=== PATIENT | female | born 1955 | race Caucasian/White ===

== ENCOUNTER 2019-11-27 11:31 | Inpatient (IN) | payer SELFPAY ==
[~2019-11-27] VITALS: Ht 170.2 cm; Wt 74.2 kg
[2019-11-27] MEDS ORDERED: SODIUM CHLORIDE 0.9% 1,000 ML IVB ONE (12:49)
[2019-11-27 13:21] LABS: Basophils # (auto) 0 10 ^3/uL (0-0.2); Basophils % (auto) 0.4 % (0.0-2.0); Eosinophils # (auto) 0 10 ^3/uL (0-0.8); Eosinophils % (auto) 0.2 % (0.0-7.0); Hematocrit 33.1 % (36.0-46.0); Hemoglobin 10.7 g/dL (12.2-16.2); Lymphocytes # (auto) 0.9 10 ^3/uL (0.4-5.4); Lymphocytes % (auto) 15.4 % (10.0-50.0); Mean Corpuscular Hgb Conc. 32.2 g/dL (32.0-36.0); Mean Corpuscular Volume 87.1 fL (80.0-100.0); Monocytes # (auto) 0.4 10 ^3/uL (0-1.3); Monocytes % (auto) 6.3 % (0.0-12.0); Neutrophils # (auto) 4.6 10 ^3/uL (1.6-8.6); Neutrophils % (auto) 77.7 % (37.0-80.0); Platelet Count (auto) 325 10^3/uL (140-450); Red Cell Distribution Width 14.6 % (11.8-14.3)
[2019-11-27 13:23] LABS: Urine Amorphous Crystal FEW /hpf (None Seen); Urine Bacteria MANY /hpf (None Seen); Urine Blood TRACE /uL (Negative); Urine Specific Gravity 1.008 (1.001-1.035); Urine WBC 7 /hpf (0 - 5)
[2019-11-27 13:36] LABS: INR 1.01 (0.9-1.15); Partial Thromboplastin Time 27.8 sec (23.64-32.05)
[2019-11-27 13:40] LABS: Alanine Aminotransferase 27 U/L (13-56); Albumin 3.1 g/dL (3.4-5.0); Anion Gap 9 (5-15); Blood Urea Nitrogen 12 mg/dL (7-18); Calcium 8.3 mg/dL (8.5-10.1); Carbon Dioxide 26 mmol/L (21-32); Chloride 102 mmol/L (98-107); Glucose 107 mg/dL (74-106); Magnesium 2.3 mg/dL (1.6-2.6); Potassium 3.8 mmol/L (3.5-5.1); Sodium 137 mmol/L (136-145)
[2019-11-27 13:45] LABS: Alkaline Phosphatase 117 U/L (45-117); Aspartate Aminotransferase 37 U/L (15-37); BUN/Creatinine Ratio 17.9; Bilirubin, Total 0.3 mg/dL (0.2-1.0); GFR African American 114 mL/min; GFR Non-African American 94 mL/min; Total Protein 7.8 g/dL (6.4-8.2)
[2019-11-27] MEDS: SODIUM CHLORIDE 0.9% 1,000 ML IV SCH (18:16)
[2019-11-27] MEDS ORDERED: ACETAMINOPHEN 500 MG TAB PO PRN (18:30)
[2019-11-27] MEDS ORDERED: ONDANSETRON HCL 4 MG/2 ML VIAL IV PRN (18:30)
[2019-11-27] MEDS ORDERED: DIPHENOXYLATE W/ATROPINE 2.5 MG TAB PO ONE (18:30)
[2019-11-27] MEDS ORDERED: DEXTROSE (50%) 50ML SYRG IV PRN (18:30)
[2019-11-27] MEDS ORDERED: HYDROcodone-ACET 5/325MG TAB PO PRN (18:30)
[2019-11-27] MEDS ORDERED: MORPHINE SULF INJ 2 MG/ML SYRINGE 1ML IV PRN ×2 (18:30)
[2019-11-27] MEDS ORDERED: NITROGLYCERIN 0.4 MG SL TAB SL PRN (18:30)
[2019-11-27] MEDS: cefTRIAXone 1GM/50ML D5W 50 ML IV SCH (19:01)
--- NOTE | 2019-11-27 21:20 | NUR ---
[facility] admit from ER [facility],HAL admitted to [facility] from ED. Patient oriented to Hayley Vasquez, primary RN, unit, room, bed, and unit policies regarding patient care and visiting hours. Patient weighed by bedscale and encouraged to call if they need something. All questions and concerns addressed, patient verbalized understanding.
[2019-11-27 22:00] VITALS: BP 130/64
[2019-11-27 22:06] VITALS: BP 130/64
[2019-11-27] MEDS ORDERED: INFLUENZA QUAD 2019-2020 0.5ml SYRG IM ONE (22:30)
[2019-11-27] MEDS ORDERED: PNEUMOCOCCAL VACC POLYS 25 MCG/0.5 ML VIAL IM ONE (22:30)
[2019-11-27] MEDS ORDERED: OMEP-335 PO (22:41)
[2019-11-27] MEDS ORDERED: GABA-339 PO (22:41)
[2019-11-27] MEDS ORDERED: LEVO112T35 PO (22:41)
[2019-11-27] MEDS ORDERED: INSLISPI SC (22:41)
[2019-11-27] MEDS ORDERED: FLUO60TA7 PO (22:41)
[2019-11-27] MEDS: GABAPENTIN 300 MG CAP PO SCH (22:48)
[2019-11-27] MEDS: ACCU-CHEK COMFORT CURVE STRIP VI SCH (22:49)
[2019-11-27] MEDS: InsuLIN REG 1unit/0.01ml Soln (100units/ml) SC SCH (22:49)
--- NOTE | 2019-11-28 02:47 | NUR ---
WOUND CARE WOUND NOTED TO PATIENTS RIGHT FOREARM UPON ARRIVAL. PATIENT STATED SHE GOT THE ABRASION WHEN SHE FELL AT HOME AND EMS DRESSED THE WOUND IN ROUTE TO THE HOSPITAL. DRESSING WAS REMOVED AND WOUND CLEANED. PATIENT REFUSED WOUND DRESSING AT THIS TIME AND REQUESTED TO LEAVE WOUND OPEN TO AIR. PHOTO TAKEN. PATIENT TOLERATED INTERVENTION WELL WITH NO S/S OF DISTRESS. WILL CONTINUE TO MONITOR.
--- NOTE | 2019-11-28 03:35 | NUR ---
LOW BS PATIENT REPORTED "FEELING FUNNY", PATIENT WAS SITTING UP IN BED, RESTING. BLOOD GLUCOSE WAS CHECKED, READING 22, RECHECKED PER PROTOCOL, READING 25. PATIENT WAS GIVEN JUICE BOX AND CRACKERS. BLOOD GLUCOSE WAS RECHECKED WITH A FINAL READING OF 84. PATIENT STATED SHE "FELT FINE NOW" AND WAS RESTING IN BED, ALERT AND ORIENTED. HOSPITALIST PAGED PER PROTOCOL. WILL CONTINUE TO MONITOR.
[2019-11-28] MEDS: SODIUM CHLORIDE 0.9% 1,000 ML IV SCH ×2 (04:14→14:05)
[2019-11-28 05:41] VITALS: BP 100/62
[2019-11-28] MEDS: GABAPENTIN 300 MG CAP PO SCH ×2 (06:26→14:03)
[2019-11-28 06:52] LABS: Calcium 7.4 mg/dL (8.5-10.1)
[2019-11-28] MEDS ORDERED: INSULIN LANTUS (GLARGINE) 1 /0.01ml (100units/ml) SC SCH (07:00)
[2019-11-28] MEDS: InsuLIN REG 1unit/0.01ml Soln (100units/ml) SC SCH ×4 (07:00→22:29)
[2019-11-28 07:06] LABS: Eosinophils # (auto) 0.1 10 ^3/uL (0-0.8); Hemoglobin 8.2 g/dL (12.2-16.2); Lymphocytes # (auto) 1.7 10 ^3/uL (0.4-5.4); Monocytes # (auto) 0.6 10 ^3/uL (0-1.3); Nucleated Red Blood Cells % 0.1 %; Platelet Count (auto) 230 10^3/uL (140-450)
[2019-11-28] MEDS: ACCU-CHEK COMFORT CURVE STRIP VI SCH ×4 (07:11→22:17)
[2019-11-28 07:13] LABS: Basophils # (auto) 0 10 ^3/uL (0-0.2); Basophils % (auto) 0.9 % (0.0-2.0); Eosinophils % (auto) 2.7 % (0.0-7.0); Hematocrit 25.2 % (36.0-46.0); Lymphocytes % (auto) 32.8 % (10.0-50.0); Mean Corpuscular Hemoglobin 28.4 pg (28.0-32.0); Mean Corpuscular Hgb Conc. 32.4 g/dL (32.0-36.0); Mean Corpuscular Volume 87.5 fL (80.0-100.0); Monocytes % (auto) 12.7 % (0.0-12.0); Neutrophils # (auto) 2.6 10 ^3/uL (1.6-8.6); Neutrophils % (auto) 50.9 % (37.0-80.0); Red Blood Cells 2.88 10^6/uL (4.0-5.20); Red Cell Distribution Width 14.7 % (11.8-14.3); White Blood Cell 5.1 10^3/uL (4.4-10.8)
--- NOTE | 2019-11-28 07:30 | NUR ---
Opening Shift Note Assumed care of patient, who is alert and oriented x4. No S/S of distress/SOB or pain. Bed is low, locked with 2x side rails up. Call light is within reach. Instructed on POC and to call for assist PRN, will continue to monitor for changes Q1hr and PRN.
[2019-11-28 08:00] VITALS: BP 102/56
[2019-11-28] MEDS: cefTRIAXone 1GM/50ML D5W 50 ML IV SCH (08:46)
[2019-11-28 09:00] VITALS: BP 102/56
[2019-11-28] MEDS: FLUoxetine HCL 20 MG CAP PO SCH (09:51)
[2019-11-28] MEDS ORDERED: FAMOTIDINE 20 MG TAB PO SCH (10:00)
[2019-11-28] MEDS ORDERED: LEVOTHYROXINE SODIUM 100 MCG/5 ML INJ IV ONE (10:30)
[2019-11-28 13:00] VITALS: BP 116/65
--- NOTE | 2019-11-28 13:11 | NUR ---
social Service consult regarding Advance Directives. Provided pt with information on Advance Directives and Durable Power of employment law attorney. Pt verbalized understanding and accepted information.Will contact Operating Room Tech for any further concerns or issues.
[2019-11-28] MEDS ORDERED: SODIUM CHLORIDE 0.9% 1,000 ML IV SCH (15:00)
--- NOTE | 2019-11-28 15:00 | NUR ---
WOUND CARE NOTE: Wound care into see patient per wound care request regarding skin integrity issue that are noted present on admission. Bedside nurse took photograph of patient's skin issue upon admission for reference. Patient is 64 years old female with admitting diagnosis of Acute Cystitis. Patient is resting in bed in Rm. 221B. Patient is awake, alert and oriented. Patient is in no stated pain at this time. Per RN's report,patient is ambulatory to bathroom with assist. She's self turn and reposition. Her Shawn score is 20. Skin assessment done with the assistance of patient's nurse, HUSAM Mahmood. Patent noted with multiple abrasions to bilateral forearm. L forearm abrasions are scabbed and dry, left open to air. Rt forearm abrasions measuring 5x0.8cm and 3x0.8cm. Wounds are red with pink periwound, scant serosanguineous drainage noted, no odor noted. Cleansed Rt forearm open abrasions with NS,patted dry with gauze, applied Thera honey gel and covered with Opti foam gentle dressing. No pressure injury noted. Patient tolerated well. Bed in low position, call obrien on hand, with all safety precautions in placed. No further wound care monitoring needed at this time. RECOMMENDATION: Nursing to continue with Q3Days/PRN dressing change to Rt forearm wounds per MD order, redistribute pressure points with pillows, reconsult for active wound, pressure injury, low Shawn score of 12 and below. Addendum: 11/28/19 at 1615 by Liusa Rodriguez RN Amended: Links added.
[2019-11-28] MEDS ORDERED: D5W/SOD CHLO 0.9% 1,000 ML IV SCH (16:30)
--- NOTE | 2019-11-28 16:31 | NUR ---
Low Blood Sugar Patient stated that she wanted her blood sugar checked because she did not feel well. First BS: 24, Reassessed per protocol: 25. Provided patient with apple juice and prabha crackers. This nurse also paged Dr. Macias per protocol and received new orders for D5W 0.9 NS @ 60 ml/hr (see orders). Will continue to monitor.
[2019-11-28 17:00] VITALS: BP 131/70
--- NOTE | 2019-11-28 17:10 | NUR ---
Reassessment:BS Upon reassessment BS: 121. Patient states she feels much better. She is alert and oriented x4, sitting up in bed watching television. IV fluids running per MD order. Will continue to monitor.
[2019-11-28 17:41] LABS: % Iron Saturation 23.6 % (15-50)
[2019-11-28] MEDS: Ensure HIGH Protein Chocolate 8oz Bottle PO SCH (18:04)
--- NOTE | 2019-11-28 19:47 | NUR ---
Opening Shift Note Assumed care of patient, awake and alert, resting comfortably in bed. No S/S of distress/SOB or pain. Instructed on POC and to call for assist PRN, will continue to monitor for changes Q1hr and PRN.
[2019-11-28 22:07] VITALS: BP 131/68
--- NOTE | 2019-11-28 22:35 | NUR ---
SAMPLE SENT STOOL SAMPLE SENT TO LAB PER MD ORDER.
--- NOTE | 2019-11-29 03:57 | NUR ---
BS ASSESSMENT PATIENT CONCERNED ABOUT BLOOD GLUCOSE. BLOOD GLUCOSE 85. PATIENT HAS JUICE AT BEDSIDE AND WAS INSTRUCTED TO CALL FOR ASSISTANCE. PATIENT COMFORTABLE IN BED, AND 'RELIEVED' WITH BLOOD GLUCOSE RESULTS. WILL CONTINUE TO MONITOR.
[2019-11-29 05:29] VITALS: BP 110/63
[2019-11-29] MEDS: ACCU-CHEK COMFORT CURVE STRIP VI SCH ×4 (06:48→22:00)
[2019-11-29] MEDS: InsuLIN REG 1unit/0.01ml Soln (100units/ml) SC SCH ×4 (06:48→22:00)
[2019-11-29 06:51] LABS: Hemoglobin 8.1 g/dL (12.2-16.2)
[2019-11-29 06:54] LABS: Hematocrit 24.7 % (36.0-46.0)
--- NOTE | 2019-11-29 07:00 | NUR ---
PATIENT AWAKE, ALERT AND ORIENTED, DENIES DISCOMFORT OR SHORTNESS OF BREATH.PATIENT IS AMBULATORY.
[2019-11-29 07:14] LABS: Potassium 3.7 mmol/L (3.5-5.1)
[2019-11-29 07:22] LABS: BUN/Creatinine Ratio 9.5; Calcium 7.6 mg/dL (8.5-10.1)
[2019-11-29 08:00] VITALS: BP 102/56
[2019-11-29 09:00] VITALS: BP 100/49
--- NOTE | 2019-11-29 09:30 | NUR ---
ALL MEDICATIONS GIVEN TO PATIENT, D5W WAS DISCONTINUE, PATIENT HAD QUESTIONS REGARDING IV FLUIDS, PLAN OF CARE EXPLAINED TO PATIENT. REINFORCED THE USE OF CALL LIGHT AND TO CALL FOR HELP NEEDED.
[2019-11-29] MEDS ORDERED: PANTOPRAZOLE 40 MG TAB PO ONE (10:15)
--- NOTE | 2019-11-29 10:20 | NUR ---
DR CHAND WENT TO VISIT PATIENT AND EXPLAINED PLAN OF CARE, PATIENT IS AWARE SHE WILL STAY IN THE HOSPITAL FOR 2 MORE DAYS TO INVESTIGATE HgB. DIONISIO OCCULT BLOOD WAS NEGATIVE.
[2019-11-29] MEDS: LEVOTHYROXINE SODIUM 100 MCG/5 ML INJ IV SCH (10:22)
[2019-11-29] MEDS: cefTRIAXone 1GM/50ML D5W 50 ML IV SCH (10:22)
[2019-11-29] MEDS: Ensure HIGH Protein Chocolate 8oz Bottle PO SCH ×2 (10:23→18:00)
[2019-11-29] MEDS: FLUoxetine HCL 20 MG CAP PO SCH (10:23)
--- NOTE | 2019-11-29 12:20 | NUR ---
PATIENT WILL UNDER GO EGD IN THE MORNING PER DR ARRINGTON. PATIENT AWARE.
--- NOTE | 2019-11-29 12:37 | NUR ---
Nutrition Assessment Notes Please refer to link for full assessment notes. Est energy needs: 1116-3571 kcals (23-25 kcal/kgBW) d/t age and Gastric bipass Est protein needs: 74-80 gms/day (0.8-1.0 gm/kgBW) Will continue to monitor and reassess prn. Addendum: 11/29/19 at [address] Amended: Links added.
--- NOTE | 2019-11-29 13:52 | NUR ---
PATIENT WOULD LIKE TO GET COLONOSCOPY, SHE TOLD DR ARRINGTON THAT SHE DID NOT WANTED, HOWEVER NOW SHE CHANGED HER MIND AND WANTS TO LET DR ARRINGTON KNOW.
[2019-11-29 14:19] VITALS: BP 135/73
[2019-11-29 16:20] VITALS: BP 116/62
--- NOTE | 2019-11-29 17:00 | NUR ---
Spoked to dr Watkins, regarding patient wanting to perform a colonoscopy, however the patient would need preparation this could get done as outpatient. communicated this to patient. Patient verbalized understanding.
[2019-11-29] MEDS: SUCRALFATE 1 GM/10 ML ORAL SUSP PO SCH ×2 (17:19→22:24)
[2019-11-29 22:00] VITALS: BP 122/64
[2019-11-29] MEDS: PANTOPRAZOLE 40 MG TAB PO SCH (22:24)
[2019-11-30 04:59] LABS: Basophils # (auto) 0.1 10 ^3/uL (0-0.2); Basophils % (auto) 1.2 % (0.0-2.0); Eosinophils # (auto) 0.2 10 ^3/uL (0-0.8); Eosinophils % (auto) 3.8 % (0.0-7.0); Hematocrit 27.9 % (36.0-46.0); Hemoglobin 8.8 g/dL (12.2-16.2); Lymphocytes # (auto) 2.1 10 ^3/uL (0.4-5.4); Lymphocytes % (auto) 41.4 % (10.0-50.0); Mean Corpuscular Hemoglobin 27.7 pg (28.0-32.0); Mean Corpuscular Hgb Conc. 31.6 g/dL (32.0-36.0); Mean Corpuscular Volume 87.7 fL (80.0-100.0); Monocytes # (auto) 0.5 10 ^3/uL (0-1.3); Neutrophils # (auto) 2.2 10 ^3/uL (1.6-8.6); Neutrophils % (auto) 43.6 % (37.0-80.0); Platelet Count (auto) 238 10^3/uL (140-450); Red Blood Cells 3.18 10^6/uL (4.0-5.20); Red Cell Distribution Width 14.8 % (11.8-14.3)
--- NOTE | 2019-11-30 05:05 | NUR ---
NEW IV SITE OF 20 GAUGE ESTABLISHED IN RIGHT WRIST BECAUSE LEFT ARM IV SITE WAS LEAKING. PT TOLERATED WELL.
[2019-11-30 05:16] LABS: INR 1.05 (0.9-1.15)
[2019-11-30 05:37] LABS: Folate (Folic Acid) 7.48 ng/mL (5.38-24)
[2019-11-30 05:40] LABS: Albumin 2.4 g/dL (3.4-5.0); Calcium 7.9 mg/dL (8.5-10.1); Potassium 4.1 mmol/L (3.5-5.1)
[2019-11-30 05:44] LABS: BUN/Creatinine Ratio 11.1; Bilirubin, Total 0.4 mg/dL (0.2-1.0); Total Protein 6.3 g/dL (6.4-8.2)
[2019-11-30 06:01] VITALS: BP 137/77
[2019-11-30] MEDS: SUCRALFATE 1 GM/10 ML ORAL SUSP PO SCH ×4 (07:00→22:06)
[2019-11-30] MEDS: InsuLIN REG 1unit/0.01ml Soln (100units/ml) SC SCH ×4 (07:00→22:26)
[2019-11-30] MEDS: ACCU-CHEK COMFORT CURVE STRIP VI SCH ×4 (07:04→22:07)
--- NOTE | 2019-11-30 07:30 | NUR ---
Opening Shift Note Assumed care of patient, who is alert and oriented x4. Respirations are even and unlabored. No S/S of distress/SOB or pain. PIV is patent and intact. Ambulates with steady gait. Bed is low, locked with 2x side rails up. Call light is within reach. Instructed on POC and to call for assist PRN, will continue to monitor for changes Q1hr and PRN.
[2019-11-30] MEDS ORDERED: MIDAZOLAM HCL 5 MG/ML-1ML VIAL ONE (08:31)
[2019-11-30] MEDS ORDERED: LIDOCAINE VISCOUS 2% 15ML UD ONE (08:31)
[2019-11-30] MEDS ORDERED: fentaNYL CITRATE 100 MCG/2 ML VL ONE (08:31)
[2019-11-30] MEDS ORDERED: SODIUM CHLORIDE LOCK 10 ML ONE (08:31)
[2019-11-30] MEDS ORDERED: diphenhdrAMINE HCL 50 MG/1 ML VL ONE (08:32)
[2019-11-30] MEDS: cefTRIAXone 1GM/50ML D5W 50 ML IV SCH (08:51)
[2019-11-30 09:00] VITALS: BP 139/79
[2019-11-30] MEDS: LEVOTHYROXINE SODIUM 100 MCG/5 ML INJ IV SCH (09:29)
[2019-11-30] MEDS: PANTOPRAZOLE 40 MG TAB PO SCH ×2 (10:00→22:07)
[2019-11-30] MEDS: FLUoxetine HCL 20 MG CAP PO SCH (10:00)
[2019-11-30] MEDS: CYANOCOBALAMIN 500 MCG TAB PO SCH (10:00)
--- NOTE | 2019-11-30 10:30 | NUR ---
WOUND CARE NOTE: WOUND CONSULT ORDERED. PATIENT HAS ALREADY BEEN SEEN BY WOUND CARE ON O, WOUND CARE ORDERS PLACED AT THAT TIME. NO NEW WOUNDS PER BEDSIDE NURSE. NO FURTHER WOUND CARE MONITORING IS NEEDED AT THIS TIME.
--- NOTE | 2019-11-30 13:00 | NUR ---
Pre-Op Patient taken down to pre-op for scheduled EGD procedure with MD Watkins. PIV patent and intact. No distress noted upon departure.
[2019-11-30 13:18] VITALS: BP 141/72
[2019-11-30 17:00] VITALS: BP 132/77
[2019-11-30] MEDS: Ensure HIGH Protein Chocolate 8oz Bottle PO SCH (18:00)
--- NOTE | 2019-11-30 19:20 | NUR ---
Opening Shift Note Received report from HUSAM Mahmood and assumed care of patient, awake and alert. No S/S of distress/SOB or pain. Instructed patient to call for assist if needed and patient verbalized understanding. will continue to monitor .
[2019-11-30 21:45] VITALS: BP 120/71
[2019-12-01 05:30] VITALS: BP 136/78
[2019-12-01] MEDS: InsuLIN REG 1unit/0.01ml Soln (100units/ml) SC SCH ×3 (06:21→17:00)
[2019-12-01] MEDS: SUCRALFATE 1 GM/10 ML ORAL SUSP PO SCH ×3 (07:00→17:00)
[2019-12-01] MEDS: ACCU-CHEK COMFORT CURVE STRIP VI SCH ×3 (07:00→17:00)
--- NOTE | 2019-12-01 07:30 | NUR ---
Opening Shift Note Assumed care of patient, who is alert and oriented x4. No S/S of distress/SOB or pain. Respirations are even and unlabored. Bed is low, locked with 2x side rails up. Call light is within reach. Instructed on POC and to call for assist PRN, will continue to monitor for changes Q1hr and PRN.
[2019-12-01 07:33] LABS: Basophils # (auto) 0.1 10 ^3/uL (0-0.2); Basophils % (auto) 1.2 % (0.0-2.0); Eosinophils # (auto) 0.3 10 ^3/uL (0-0.8); Hematocrit 30.3 % (36.0-46.0); Hemoglobin 9.8 g/dL (12.2-16.2); Lymphocytes # (auto) 2.3 10 ^3/uL (0.4-5.4); Lymphocytes % (auto) 46.4 % (10.0-50.0); Mean Corpuscular Hemoglobin 28.1 pg (28.0-32.0); Mean Corpuscular Hgb Conc. 32.2 g/dL (32.0-36.0); Mean Corpuscular Volume 87.2 fL (80.0-100.0); Monocytes # (auto) 0.4 10 ^3/uL (0-1.3); Monocytes % (auto) 8.5 % (0.0-12.0); Neutrophils % (auto) 38.9 % (37.0-80.0); Platelet Count (auto) 269 10^3/uL (140-450); Red Blood Cells 3.48 10^6/uL (4.0-5.20); Red Cell Distribution Width 14.6 % (11.8-14.3)
[2019-12-01 07:51] LABS: Albumin 2.6 g/dL (3.4-5.0); BUN/Creatinine Ratio 13.1; Calcium 8.1 mg/dL (8.5-10.1); Potassium 4.2 mmol/L (3.5-5.1)
[2019-12-01 07:53] LABS: Bilirubin, Total 0.4 mg/dL (0.2-1.0); Total Protein 6.8 g/dL (6.4-8.2)
[2019-12-01] MEDS: Ensure HIGH Protein Chocolate 8oz Bottle PO SCH (08:00)
[2019-12-01] MEDS: LEVOTHYROXINE SODIUM 100 MCG/5 ML INJ IV SCH (08:44)
[2019-12-01] MEDS: FLUoxetine HCL 20 MG CAP PO SCH (08:44)
[2019-12-01] MEDS: PANTOPRAZOLE 40 MG TAB PO SCH (08:44)
[2019-12-01] MEDS: cefTRIAXone 1GM/50ML D5W 50 ML IV SCH (08:44)
[2019-12-01] MEDS: CYANOCOBALAMIN 500 MCG TAB PO SCH (08:46)
[2019-12-01 09:00] VITALS: BP 120/68
--- NOTE | 2019-12-01 10:20 | NUR ---
Dr. Escamilla rounding Dr. Escamilla at bedside. Patient will be discharged today.
[2019-12-01] MEDS ORDERED: CYANOCOBALAMIN (B-12) 1000 MCG/1 ML VIAL SUBCUT ONE (11:15)
[2019-12-01 13:00] VITALS: BP_SYST 125; BP_SYST 126; BP_DIAS 59; BP_DIAS 65
[2019-12-01 16:25] VITALS: BP 125/65
[2019-12-01 17:00] VITALS: BP 109/63
--- NOTE | 2019-12-01 17:07 | NUR ---
Discharge instructions given as ordered. Encourage to follow up with PMD as instructed. Patient stated that she has insurance. This nurse advised her to follow up with either Dr. Escamilla in 1 week as ordered or with her own PCP. All questions and concerns addressed. Patient verbalized understanding. Patient declined flu and pneumonia vaccine at this time. Patient educated and still refused. IV removed with catheter intact, pressure dressing applied. Patient taken ambulated to vehicle with all personal belongings, accompanied by son, Isaac. No distress noted at time of departure.
== END 2019-12-01 17:06 | disposition home or self-care (01) | DRG 637 ==
LOC: ER 11:31 → EDBD 11:31 → OVERFLOW 11:32 → CENTRAL 20:10
PROVIDERS: ADMIT Nurse Practitioner Acute Care; ATTEND Internal Medicine
PROC: 0DB68ZX Excision of Stomach, Via Natural or Artificial Opening Endoscopic, Diagnostic (ICD-10-PCS; principal; 2019-11-30 13:14)
DX: E11.649 Type 2 diabetes mellitus with hypoglycemia without coma (principal); G93.41 Metabolic encephalopathy; K92.2 Gastrointestinal hemorrhage, unspecified; E44.1 Mild protein-calorie malnutrition; N30.00 Acute cystitis without hematuria; A04.72 Enterocolitis due to Clostridium difficile, not specified as recurrent; K29.70 Gastritis, unspecified, without bleeding; K28.9 Gastrojejunal ulcer, unspecified as acute or chronic, without hemorrhage or perforation; F32.9 Major depressive disorder, single episode, unspecified; E03.9 Hypothyroidism, unspecified; G62.9 Polyneuropathy, unspecified; F41.9 Anxiety disorder, unspecified; R55 Syncope and collapse; D64.9 Anemia, unspecified; K21.9 Gastro-esophageal reflux disease without esophagitis; Z90.710 Acquired absence of both cervix and uterus; Z98.84 Bariatric surgery status; Z79.4 Long term (current) use of insulin; Z90.49 Acquired absence of other specified parts of digestive tract; Z88.5 Allergy status to narcotic agent; Z68.25 Body mass index [BMI] 25.0-25.9, adult; Z28.82 Immunization not carried out because of caregiver refusal
CPT/HCPCS: 36415; 43239; 70450; 71045; 80048; 80053; 81001; 82270; 82550; 82607; 82746; 82962; 83036; 83540; 83550; 83735; 84436; 84439; 84443; 84481; 84484; 85014; 85018; 85025; 85610; 85730; 87045; 87081; 87086; 87427; 87493; 93005; 96361; 96365; G0378; J0696; J1815; J2250; J3490; J7042

== ENCOUNTER 2022-01-27 07:13 | Inpatient (IN) | payer OTHER ==
[2022-01-27] VITALS (51 sets, daily range): BP systolic 25–241; BP diastolic 17–214
[~2022-01-27] VITALS: Ht 167.6 cm; Wt 78.2 kg
[~2022-01-27 07:13] MED LIST: FLUO60TA7 PO; GABA-339 PO; INSLISPI SC; LEVO112T2 PO; OMEP-335 PO
[2022-01-27] MEDS ORDERED: HEPARIN IN NS 1000Units/500mL 1,500 ML ONE (07:53)
[2022-01-27] MEDS ORDERED: IODIXANOL 320MG/ML 100ML BTL IV ONE ×3 (07:53→09:40)
[2022-01-27] MEDS ORDERED: DOPamine 1600MCG/ML D5W 250 ML IV ONE ×2 (07:56→08:15)
[2022-01-27] MEDS ORDERED: LIDOCAINE 2%HCL (LOCAL ANESTH.) INJ 10ml MDV ONE ×3 (08:08→17:20)
[2022-01-27] MEDS ORDERED: fentaNYL CITRATE 100 MCG/2 ML VL ONE (08:14)
[2022-01-27] MEDS ORDERED: ANGIOMAX 250 MG VIAL IV ONE (08:14)
[2022-01-27] MEDS ORDERED: ATROPINE SULF 1 MG/10ml SYR ONE ×2 (08:14→09:26)
[2022-01-27] MEDS ORDERED: MIDAZOLAM HCL 2MG/2ML 2ml VIAL (1mg/ml) ONE (08:14)
[2022-01-27] MEDS ORDERED: SODIUM CHLORIDE 0.9% 2,000 ML IV ONE ×2 (08:15→10:15)
[2022-01-27] MEDS ORDERED: SODIUM CHL 0.9% 50 ML ONE (08:15)
[2022-01-27 08:35] LABS: Albumin 2.5 g/dL (3.4-5.0); Calcium 7.9 mg/dL (8.5-10.1); Potassium 4.4 mmol/L (3.5-5.1)
[2022-01-27 08:35] LABS: Urine Bacteria NONE SEEN /hpf (None Seen); Urine Blood Negative /uL (Negative); Urine Mucus FEW (None Seen); Urine Specific Gravity 1.025 (1.001-1.035); Urine WBC 1 /hpf (0 - 5)
[2022-01-27] MEDS ORDERED: HEPARIN SODIUM (PORCINE) 5000 UNITS/ML 1ML VIAL ONE (08:35)
[2022-01-27 08:43] LABS: BUN/Creatinine Ratio 13.3; Bilirubin, Total 2.4 mg/dL (0.2-1.0)
[2022-01-27] MEDS ORDERED: InsuLIN REG 1unit/0.01ml Soln (100units/ml) ONE (08:58)
[2022-01-27] MEDS ORDERED: SODIUM CHLORIDE 0.9% 1,000 ML IVB ONE (09:00)
[2022-01-27 09:02] LABS: Basophils # (auto) 0 10 ^3/uL (0-0.2); Basophils % (auto) 0.4 % (0.0-2.0); Eosinophils # (auto) 0 10 ^3/uL (0-0.8); Eosinophils % (auto) 0.1 % (0.0-7.0); Hematocrit 38.6 % (36.0-46.0); Lymphocytes # (auto) 1.4 10 ^3/uL (0.4-5.4); Lymphocytes % (auto) 13.2 % (10.0-50.0); Mean Corpuscular Hemoglobin 31.4 pg (28.0-32.0); Mean Corpuscular Hgb Conc. 31.1 g/dL (32.0-36.0); Mean Corpuscular Volume 101.1 fL (80.0-100.0); Monocytes # (auto) 1.3 10 ^3/uL (0-1.3); Monocytes % (auto) 12.5 % (0.0-12.0); Neutrophils # (auto) 7.8 10 ^3/uL (1.6-8.6); Neutrophils % (auto) 73.8 % (37.0-80.0); Nucleated Red Blood Cells % 0.1 %; Red Blood Cells 3.82 10^6/uL (4.0-5.20); Red Cell Distribution Width 15.2 % (11.8-14.3); White Blood Cell 10.6 10^3/uL (4.4-10.8)
[2022-01-27] MEDS ORDERED: EPTIFIBATIDE INJ (2MG/ML) 10ML VIAL IV ONE (09:19)
[2022-01-27 09:52] LABS: INR 1.05 (0.9-1.15); Partial Thromboplastin Time 21.4 sec (23.6-33.0)
[2022-01-27] MEDS ORDERED: CLOPIDOGREL 300 MG TAB ONE (10:05)
[2022-01-27] MEDS ORDERED: LACTATED RINGER'S 2,000 ML IV ONE (10:15)
[2022-01-27] MEDS ORDERED: INSULIN LANTUS (GLARGINE) 1 /0.01ml (100units/ml) SC ONE (10:15)
[2022-01-27] MEDS ORDERED: MORPHINE SULFATE INJECTION 2 MG/ML SYRG IV PRN (10:15)
[2022-01-27] MEDS ORDERED: SOD CHL 0.9%/ KCL 20MEQ 1,000 ML IV PRN (10:15)
[2022-01-27] MEDS ORDERED: NITROGLYCERIN 0.4 MG SL TAB SL PRN (10:15)
[2022-01-27] MEDS ORDERED: InsuLIN R (HUMAN) 100 UNITS in SODIUM CHL 0.9% 99 ML IV SCH (10:15)
[2022-01-27] MEDS ORDERED: D5W/SOD CHLO 0.9% 1,000 ML IV PRN (10:15)
[2022-01-27] MEDS ORDERED: CEFEPIME 1GM/ 50ML 50 ML IV ONE (10:15)
[2022-01-27] MEDS ORDERED: DEXTROSE (50%) 50ML SYRG IV PRN (10:15)
[2022-01-27] MEDS ORDERED: DOCUSATE SOD 100 MG CAP PO PRN (10:30)
[2022-01-27] MEDS ORDERED: LORazepam 0.5 MG TAB PO PRN (10:30)
[2022-01-27] MEDS ORDERED: HYDROcodone-ACET 5/325MG TAB PO PRN (10:30)
[2022-01-27] MEDS ORDERED: HEPARIN SODIUM (PORCINE) 5000 UNITS/ML 1ML VIAL IV ONE (10:30)
[2022-01-27] MEDS ORDERED: PANTOPRAZOLE 40 MG/10 ML VIAL INJ IV ONE (10:30)
[2022-01-27] MEDS ORDERED: hydrALAZINE HCL 20 MG/ML VL IV PRN (10:30)
[2022-01-27] MEDS: ACCU-CHEK COMFORT CURVE STRIP VI SCH ×8 (11:54→23:10)
[2022-01-27 13:23] LABS: Basophils # (auto) 0.1 10 ^3/uL (0-0.2); Basophils % (auto) 0.9 % (0.0-2.0); Eosinophils # (auto) 0 10 ^3/uL (0-0.8); Hematocrit 30.5 % (36.0-46.0); Hemoglobin 10.2 g/dL (12.2-16.2); Lymphocytes # (auto) 0.7 10 ^3/uL (0.4-5.4); Lymphocytes % (auto) 4.2 % (10.0-50.0); Mean Corpuscular Hemoglobin 31.5 pg (28.0-32.0); Mean Corpuscular Hgb Conc. 33.3 g/dL (32.0-36.0); Mean Corpuscular Volume 94.7 fL (80.0-100.0); Monocytes # (auto) 1.2 10 ^3/uL (0-1.3); Monocytes % (auto) 7.4 % (0.0-12.0); Neutrophils # (auto) 13.7 10 ^3/uL (1.6-8.6); Neutrophils % (auto) 87.5 % (37.0-80.0); Red Blood Cells 3.22 10^6/uL (4.0-5.20); Red Cell Distribution Width 14.5 % (11.8-14.3); White Blood Cell 15.7 10^3/uL (4.4-10.8)
[2022-01-27 13:43] LABS: Calcium 6.8 mg/dL (8.5-10.1); Potassium 4.1 mmol/L (3.5-5.1)
[2022-01-27 13:54] LABS: Total Protein 4.8 g/dL (6.4-8.2)
[2022-01-27 13:58] LABS: BUN/Creatinine Ratio 15.7
[2022-01-27] MEDS ORDERED: NOREPINEPHRINE 8 MG/250ML KIT 250 ML IV ONE (14:51)
[2022-01-27] MEDS: ONDANSETRON HCL 4 MG/2 ML VIAL IV PRN ×2 (15:03→22:10)
[2022-01-27] MEDS: SODIUM CHLORIDE 0.9% 1,000 ML IV SCH ×3 (15:08→19:30)
[2022-01-27] MEDS: HEPARIN SODIUM XX SCH (16:23)
[2022-01-27] MEDS: D5W 5% XX SCH (16:23)
[2022-01-27] MEDS: NOREPINEPHRINE 8 MG/250ML KIT 250 ML IV SCH (16:24)
[2022-01-27] MEDS ORDERED: FUROSEMIDE 40 MG/4 ML VIAL IV ONE (17:15)
[2022-01-27] MEDS ORDERED: FUROSEMIDE 20 MG/2 ML VIAL ONE (17:20)
[2022-01-27] MEDS ORDERED: MIDAZOLAM HCL 2MG/2ML 2ml VIAL (1mg/ml) IV PRN (21:45)
[2022-01-27] MEDS ORDERED: ALBUMIN 5% 250 ML IV ONE (21:45)
[2022-01-27] MEDS: HEPARIN DRIP/D5W 100UNITS/ML 250 ML IV SCH (22:00)
[2022-01-27] MEDS ORDERED: ATORVASTATIN 20 MG TAB PO SCH (22:00)
[2022-01-28] VITALS (93 sets, daily range): BP systolic 24–163; BP diastolic 13–141
[2022-01-28] MEDS: ACCU-CHEK COMFORT CURVE STRIP VI SCH ×10 (00:17→20:21)
[2022-01-28] MEDS: SODIUM CHLORIDE 0.9% 1,000 ML IV SCH ×4 (01:30→14:00)
[2022-01-28 01:45] LABS: Basophils # (auto) 0.1 10 ^3/uL (0-0.2); Basophils % (auto) 0.4 % (0.0-2.0); Eosinophils # (auto) 0 10 ^3/uL (0-0.8); Eosinophils % (auto) 0.1 % (0.0-7.0); Hematocrit 29.7 % (36.0-46.0); Hemoglobin 10.1 g/dL (12.2-16.2); Lymphocytes # (auto) 2.1 10 ^3/uL (0.4-5.4); Lymphocytes % (auto) 11.7 % (10.0-50.0); Mean Corpuscular Hemoglobin 31.6 pg (28.0-32.0); Mean Corpuscular Hgb Conc. 34.1 g/dL (32.0-36.0); Mean Corpuscular Volume 92.7 fL (80.0-100.0); Monocytes # (auto) 2.4 10 ^3/uL (0-1.3); Monocytes % (auto) 13.1 % (0.0-12.0); Neutrophils # (auto) 13.5 10 ^3/uL (1.6-8.6); Neutrophils % (auto) 74.7 % (37.0-80.0); Nucleated Red Blood Cells % 0.1 %; Red Blood Cells 3.21 10^6/uL (4.0-5.20); Red Cell Distribution Width 14.1 % (11.8-14.3)
[2022-01-28 02:00] LABS: BUN/Creatinine Ratio 15.1; Calcium 6.7 mg/dL (8.5-10.1); Potassium 4.1 mmol/L (3.5-5.1)
[2022-01-28 02:02] LABS: INR 1.37 (0.9-1.15)
[2022-01-28] MEDS: ONDANSETRON HCL 4 MG/2 ML VIAL IV PRN ×2 (03:30→10:16)
[2022-01-28] MEDS: DOPamine 1600MCG/ML D5W 250 ML IV SCH ×2 (04:00→20:53)
[2022-01-28 05:17] LABS: Magnesium 1.5 mg/dL (1.6-2.6); Potassium 4.1 mmol/L (3.5-5.1)
[2022-01-28 05:23] LABS: INR 1.32 (0.9-1.15)
[2022-01-28 05:40] LABS: Albumin 2.3 g/dL (3.4-5.0); BUN/Creatinine Ratio 15.1; Bilirubin, Total 1.6 mg/dL (0.2-1.0); CRP High Sensitivity 10.7 mg/dL (< 0.3); Calcium 6.8 mg/dL (8.5-10.1); Phosphorus 3.7 mg/dL (2.5-4.90); Total Protein 5.5 g/dL (6.4-8.2); Uric Acid 6.4 mg/dL (2.6-6.0)
[2022-01-28 06:21] LABS: Basophils # (auto) 0.1 10 ^3/uL (0-0.2); Basophils % (auto) 0.3 % (0.0-2.0); Eosinophils # (auto) 0 10 ^3/uL (0-0.8); Hematocrit 29.5 % (36.0-46.0); Hemoglobin 10.2 g/dL (12.2-16.2); Lymphocytes # (auto) 2.2 10 ^3/uL (0.4-5.4); Lymphocytes % (auto) 12.1 % (10.0-50.0); Mean Corpuscular Hemoglobin 31.8 pg (28.0-32.0); Mean Corpuscular Hgb Conc. 34.4 g/dL (32.0-36.0); Mean Corpuscular Volume 92.4 fL (80.0-100.0); Monocytes # (auto) 2.4 10 ^3/uL (0-1.3); Monocytes % (auto) 13.4 % (0.0-12.0); Neutrophils # (auto) 13.4 10 ^3/uL (1.6-8.6); Neutrophils % (auto) 74.2 % (37.0-80.0); Red Cell Distribution Width 14.3 % (11.8-14.3); White Blood Cell 18.1 10^3/uL (4.4-10.8)
[2022-01-28] MEDS: InsuLIN REG 1unit/0.01ml Soln (100units/ml) SC SCH ×4 (08:00→20:25)
[2022-01-28] MEDS ORDERED: MAGNESIUM SULFATE 1GM/100ML 200 ML IV ONE (08:34)
[2022-01-28] MEDS: MAGNESIUM SULFATE 1GM/100ML 100 ML IV SCH ×2 (08:42→10:03)
[2022-01-28 08:55] LABS: INR 1.29 (0.9-1.15); Partial Thromboplastin Time 57.4 sec (23.6-33.0)
[2022-01-28] MEDS: INSULIN LANTUS (GLARGINE) 1 /0.01ml (100units/ml) SC SCH (10:00)
[2022-01-28] MEDS ORDERED: ENOXAPARIN SOD 40 MG/0.4 ML SYRINGE SC SCH (10:00)
[2022-01-28 10:20] LABS: Alcohol, Urine < 3.0 mg/dL (0-10); Amphetamine Screen, Urine NEGATIVE (NEGATIVE); Barbiturate Scree,Urine NEGATIVE (NEGATIVE); Benzodiazephine Screen, Urine NEGATIVE (NEGATIVE); Cannabinoid Screen, Urine NEGATIVE (NEGATIVE); Cocaine Screen, Urine NEGATIVE (NEGATIVE); Opiate Scree,Urine NEGATIVE (NEGATIVE); Phencyclidine Screen, Urine NEGATIVE (NEGATIVE); Protein, Urine 53.8 mg/dL (0.0-11.9)
[2022-01-28] MEDS: CLOPIDOGREL BISULFATE 75 MG TAB PO SCH (10:21)
[2022-01-28] MEDS: LEVOTHYROXINE SODIUM 100 MCG TAB PO SCH (10:21)
[2022-01-28] MEDS: ASPirin 81 mg TAB PO SCH (10:21)
[2022-01-28] MEDS: PANTOPRAZOLE 40 MG/10 ML VIAL INJ IV SCH (10:40)
[2022-01-28] MEDS: CEFEPIME 1GM/ 50ML 50 ML IV SCH (10:56)
[2022-01-28 12:57] LABS: Hepatitis A Ab IgM Negative; Hepatitis B Core IgM Negative; Hepatitis C Antibody Negative (Negative)
[2022-01-28 13:06] LABS: INR 1.24 (0.9-1.15); Partial Thromboplastin Time 60.5 sec (23.6-33.0)
[2022-01-28] MEDS ORDERED: DIGOXIN 0.25 MG TAB PO ONE (13:45)
[2022-01-28 14:32] LABS: INR 1.25 (0.9-1.15); Partial Thromboplastin Time 60.4 sec (23.6-33.0)
[2022-01-28] MEDS: NOREPINEPHRINE 8 MG/250ML KIT 250 ML IV SCH ×2 (15:15→19:00)
[2022-01-28 18:19] LABS: INR 1.2 (0.9-1.15); Partial Thromboplastin Time 54.4 sec (23.6-33.0)
[2022-01-28] MEDS ORDERED: DOPamine 1600MCG/ML D5W 250 ML IV ONE (20:03)
[2022-01-28 20:37] LABS: INR 1.19 (0.9-1.15); Partial Thromboplastin Time 48.4 sec (23.6-33.0)
[2022-01-28] MEDS: HEPARIN DRIP/D5W 100UNITS/ML 250 ML IV SCH (20:52)
[2022-01-28] MEDS: IVABRADINE 5 MG TAB PO SCH (21:57)
[2022-01-28] MEDS: MORPHINE SULFATE INJECTION 2 MG/ML SYRG IV PRN (23:45)
[2022-01-29] VITALS (93 sets, daily range): BP systolic 27–134; BP diastolic 12–96
[2022-01-29] MEDS: ACCU-CHEK COMFORT CURVE STRIP VI SCH ×7 (00:09→23:30)
[2022-01-29 00:24] LABS: INR 1.17 (0.9-1.15); Partial Thromboplastin Time 47.8 sec (23.6-33.0)
[2022-01-29 02:41] LABS: INR 1.12 (0.9-1.15); Partial Thromboplastin Time 55.2 sec (23.6-33.0)
[2022-01-29] MEDS: InsuLIN REG 1unit/0.01ml Soln (100units/ml) SC SCH ×7 (04:00→23:33)
[2022-01-29 05:47] LABS: INR 1.09 (0.9-1.15); Partial Thromboplastin Time 57.5 sec (23.6-33.0)
[2022-01-29 06:33] LABS: Albumin 2.3 g/dL (3.4-5.0); BUN/Creatinine Ratio 17.1; Bilirubin, Total 1.7 mg/dL (0.2-1.0); Calcium 6.5 mg/dL (8.5-10.1); Potassium 4.4 mmol/L (3.5-5.1); Total Protein 5.2 g/dL (6.4-8.2)
[2022-01-29 06:34] LABS: Magnesium 2.3 mg/dL (1.6-2.6)
[2022-01-29] MEDS: LEVOTHYROXINE SODIUM 100 MCG TAB PO SCH (06:47)
[2022-01-29 08:21] LABS: Basophils # (auto) 0.1 10 ^3/uL (0-0.2); Basophils % (auto) 0.4 % (0.0-2.0); Eosinophils # (auto) 0 10 ^3/uL (0-0.8); Hematocrit 25.9 % (36.0-46.0); Hemoglobin 8.6 g/dL (12.2-16.2); Lymphocytes # (auto) 1.6 10 ^3/uL (0.4-5.4); Lymphocytes % (auto) 12.7 % (10.0-50.0); Mean Corpuscular Hemoglobin 31.2 pg (28.0-32.0); Mean Corpuscular Hgb Conc. 33.3 g/dL (32.0-36.0); Mean Corpuscular Volume 93.7 fL (80.0-100.0); Monocytes # (auto) 1.2 10 ^3/uL (0-1.3); Monocytes % (auto) 9.3 % (0.0-12.0); Neutrophils % (auto) 77.6 % (37.0-80.0); Nucleated Red Blood Cells % 0.1 %; Red Blood Cells 2.76 10^6/uL (4.0-5.20); Red Cell Distribution Width 14.2 % (11.8-14.3); White Blood Cell 12.9 10^3/uL (4.4-10.8)
[2022-01-29 08:36] LABS: INR 1.05 (0.9-1.15); Partial Thromboplastin Time 55.7 sec (23.6-33.0)
[2022-01-29] MEDS: PANTOPRAZOLE 40 MG/10 ML VIAL INJ IV SCH (09:27)
[2022-01-29] MEDS: DIGOXIN 0.125 MG TAB PO SCH (09:27)
[2022-01-29] MEDS: MORPHINE SULFATE INJECTION 2 MG/ML SYRG IV PRN (09:28)
[2022-01-29] MEDS: IVABRADINE 5 MG TAB PO SCH ×2 (09:30→21:32)
[2022-01-29] MEDS: ACETAMINOPHEN 325 MG TAB PO PRN (09:31)
[2022-01-29] MEDS: CEFEPIME 1GM/ 50ML 50 ML IV SCH (09:33)
[2022-01-29] MEDS: NOREPINEPHRINE BITARTRATE 32 MG in SODIUM CHL 0.9% 218 ML IV SCH ×2 (09:45→11:58)
[2022-01-29] MEDS: ASPirin 81 mg TAB PO SCH (09:55)
[2022-01-29] MEDS: CLOPIDOGREL BISULFATE 75 MG TAB PO SCH (09:55)
[2022-01-29] MEDS: SODIUM CHLORIDE 0.9% 1,000 ML IV SCH ×3 (10:00→11:30)
[2022-01-29] MEDS: INSULIN LANTUS (GLARGINE) 1 /0.01ml (100units/ml) SC SCH (10:00)
[2022-01-29] MEDS ORDERED: FUROSEMIDE 20 MG/2 ML VIAL IV ONE (10:30)
[2022-01-29] MEDS ORDERED: FUROSEMIDE 40 MG/4 ML VIAL IV ONE (11:30)
[2022-01-29] MEDS ORDERED: FUROSEMIDE 100 MG/10ML VIAL IV ONE (11:30)
[2022-01-29] MEDS ORDERED: CALCIUM GLUC 1,000mg/50ml-NS 50 ML IV ONE (12:30)
[2022-01-29] MEDS: DOPamine 1600MCG/ML D5W 250 ML IV SCH (12:37)
[2022-01-29] MEDS: ONDANSETRON HCL 4 MG/2 ML VIAL IV PRN (13:08)
[2022-01-29] MEDS ORDERED: ceFAZolin 1GM/50ML 50 ML IV SCH (14:00)
[2022-01-29] MEDS: HEPARIN SODIUM XX SCH (14:45)
[2022-01-29] MEDS: D5W 5% XX SCH (14:45)
[2022-01-29 15:06] LABS: INR 1.03 (0.9-1.15); Partial Thromboplastin Time 42.4 sec (23.6-33.0)
[2022-01-29 15:47] LABS: Basophils # (auto) 0.1 10 ^3/uL (0-0.2); Basophils % (auto) 0.5 % (0.0-2.0); Eosinophils # (auto) 0 10 ^3/uL (0-0.8); Eosinophils % (auto) 0.2 % (0.0-7.0); Hemoglobin 8.4 g/dL (12.2-16.2); Lymphocytes # (auto) 1.4 10 ^3/uL (0.4-5.4); Lymphocytes % (auto) 10.5 % (10.0-50.0); Mean Corpuscular Hemoglobin 31.1 pg (28.0-32.0); Mean Corpuscular Hgb Conc. 33.5 g/dL (32.0-36.0); Mean Corpuscular Volume 92.9 fL (80.0-100.0); Monocytes # (auto) 1.2 10 ^3/uL (0-1.3); Monocytes % (auto) 8.4 % (0.0-12.0); Neutrophils % (auto) 80.4 % (37.0-80.0); Red Blood Cells 2.69 10^6/uL (4.0-5.20); Red Cell Distribution Width 14.3 % (11.8-14.3); White Blood Cell 13.7 10^3/uL (4.4-10.8)
[2022-01-29 21:13] LABS: INR 1.02 (0.9-1.15); Partial Thromboplastin Time 26.4 sec (23.6-33.0)
[2022-01-30] VITALS (98 sets, daily range): BP systolic 26–149; BP diastolic 17–78
[2022-01-30] MEDS: MORPHINE SULFATE INJECTION 2 MG/ML SYRG IV PRN ×2 (02:41→17:03)
[2022-01-30 02:59] LABS: INR 1.02 (0.9-1.15); Partial Thromboplastin Time 27.4 sec (23.6-33.0)
[2022-01-30] MEDS: ACETAMINOPHEN 325 MG TAB PO PRN (03:04)
[2022-01-30] MEDS: ACCU-CHEK COMFORT CURVE STRIP VI SCH ×5 (04:22→20:12)
[2022-01-30] MEDS: InsuLIN REG 1unit/0.01ml Soln (100units/ml) SC SCH ×5 (04:23→20:22)
[2022-01-30 05:54] LABS: Albumin 2.2 g/dL (3.4-5.0); BUN/Creatinine Ratio 17.3; Calcium 7.3 mg/dL (8.5-10.1); Magnesium 2.2 mg/dL (1.6-2.6); Potassium 4.1 mmol/L (3.5-5.1)
[2022-01-30 05:56] LABS: Bilirubin, Total 1.1 mg/dL (0.2-1.0)
[2022-01-30 06:13] LABS: Basophils # (auto) 0 10 ^3/uL (0-0.2); Eosinophils # (auto) 0 10 ^3/uL (0-0.8); Eosinophils % (auto) 0.4 % (0.0-7.0); Hemoglobin 8.1 g/dL (12.2-16.2); Lymphocytes # (auto) 1.2 10 ^3/uL (0.4-5.4); Monocytes # (auto) 0.9 10 ^3/uL (0-1.3)
[2022-01-30 06:18] LABS: Basophils % (auto) 0.4 % (0.0-2.0); Hematocrit 23.4 % (36.0-46.0); Lymphocytes % (auto) 11.9 % (10.0-50.0); Mean Corpuscular Hemoglobin 32.3 pg (28.0-32.0); Mean Corpuscular Hgb Conc. 34.4 g/dL (32.0-36.0); Mean Corpuscular Volume 93.7 fL (80.0-100.0); Monocytes % (auto) 8.7 % (0.0-12.0); Neutrophils % (auto) 78.6 % (37.0-80.0); Nucleated Red Blood Cells % 0.1 %; Red Cell Distribution Width 14.3 % (11.8-14.3); White Blood Cell 10.1 10^3/uL (4.4-10.8)
[2022-01-30] MEDS: LEVOTHYROXINE SODIUM 100 MCG TAB PO SCH (06:28)
[2022-01-30] MEDS: SODIUM CHLORIDE 0.9% 1,000 ML IV SCH (07:30)
[2022-01-30] MEDS: ONDANSETRON HCL 4 MG/2 ML VIAL IV PRN ×2 (09:17→15:20)
[2022-01-30] MEDS: DOPamine 1600MCG/ML D5W 250 ML IV SCH (09:31)
[2022-01-30] MEDS: INSULIN LANTUS (GLARGINE) 1 /0.01ml (100units/ml) SC SCH (10:00)
[2022-01-30 10:46] LABS: Partial Thromboplastin Time 30.2 sec (23.6-33.0)
[2022-01-30] MEDS: PANTOPRAZOLE 40 MG/10 ML VIAL INJ IV SCH (11:28)
[2022-01-30] MEDS: CLOPIDOGREL BISULFATE 75 MG TAB PO SCH (11:28)
[2022-01-30] MEDS: ASPirin 81 mg TAB PO SCH (11:30)
[2022-01-30] MEDS: DIGOXIN 0.125 MG TAB PO SCH (11:32)
[2022-01-30] MEDS: IVABRADINE 5 MG TAB PO SCH ×2 (11:33→22:24)
[2022-01-30] MEDS: CEFEPIME 1GM/ 50ML 50 ML IV SCH (12:33)
[2022-01-30 14:38] LABS: INR 1.16 (0.9-1.15); Partial Thromboplastin Time 31.6 sec (23.6-33.0)
[2022-01-30] MEDS: HEPARIN SODIUM XX SCH (14:45)
[2022-01-30] MEDS: D5W 5% XX SCH (14:45)
[2022-01-30] MEDS ORDERED: LIDOCAINE 2% (LOCAL ANESTH.) PF 5ml SDV ONE (17:22)
[2022-01-30] MEDS ORDERED: LIDOCAINE 1% (LOCAL ANESTH.) PF 5ml SDV ONE (17:22)
[2022-01-30] MEDS ORDERED: LIDOCAINE 1% HCL (LOCAL ANESTH.) INJ 20ML MDV ID ONE (19:15)
[2022-01-30] MEDS ORDERED: DIGOXIN (250MCG/ML) 2 ML AMPULE ONE (19:44)
[2022-01-30] MEDS ORDERED: DIGOXIN (250MCG/ML) 2 ML AMPULE IV ONE (20:00)
[2022-01-30] MEDS ORDERED: NOREPINEPHRINE 8 MG/250ML KIT 250 ML IV ONE (23:14)
[2022-01-30] MEDS ORDERED: NOREPINEPHRINE BITARTRATE 6 ML IV ONE (23:15)
[2022-01-31] VITALS (98 sets, daily range): BP systolic 69–205; BP diastolic 26–194
[2022-01-31] MEDS: InsuLIN REG 1unit/0.01ml Soln (100units/ml) SC SCH ×5 (04:00→18:00)
[2022-01-31] MEDS: ACCU-CHEK COMFORT CURVE STRIP VI SCH ×5 (04:00→18:00)
[2022-01-31 05:06] LABS: Basophils # (auto) 0 10 ^3/uL (0-0.2); Eosinophils # (auto) 0.1 10 ^3/uL (0-0.8); Mean Corpuscular Hemoglobin 32.4 pg (28.0-32.0); Neutrophils # (auto) 8.5 10 ^3/uL (1.6-8.6); White Blood Cell 10.9 10^3/uL (4.4-10.8)
[2022-01-31 05:08] LABS: Basophils % (auto) 0.4 % (0.0-2.0); Eosinophils % (auto) 0.6 % (0.0-7.0); Lymphocytes # (auto) 1.1 10 ^3/uL (0.4-5.4); Lymphocytes % (auto) 10.5 % (10.0-50.0); Mean Corpuscular Hgb Conc. 34.7 g/dL (32.0-36.0); Mean Corpuscular Volume 93.3 fL (80.0-100.0); Monocytes # (auto) 1.2 10 ^3/uL (0-1.3); Monocytes % (auto) 10.8 % (0.0-12.0); Neutrophils % (auto) 77.7 % (37.0-80.0); Nucleated Red Blood Cells % 0.5 %; Red Blood Cells 2.47 10^6/uL (4.0-5.20); Red Cell Distribution Width 14.3 % (11.8-14.3)
[2022-01-31 05:26] LABS: Albumin 2.1 g/dL (3.4-5.0); Calcium 7.5 mg/dL (8.5-10.1); Potassium 4.2 mmol/L (3.5-5.1)
[2022-01-31 05:29] LABS: BUN/Creatinine Ratio 17.9; Bilirubin, Total 1.2 mg/dL (0.2-1.0); Total Protein 5.9 g/dL (6.4-8.2)
[2022-01-31] MEDS: NOREPINEPHRINE BITARTRATE 32 MG in SODIUM CHL 0.9% 218 ML IV SCH (06:49)
[2022-01-31] MEDS: DOPamine 1600MCG/ML D5W 250 ML IV SCH (06:50)
[2022-01-31] MEDS: LEVOTHYROXINE SODIUM 100 MCG TAB PO SCH (07:00)
[2022-01-31] MEDS: PANTOPRAZOLE 40 MG/10 ML VIAL INJ IV SCH (09:24)
[2022-01-31] MEDS: DIGOXIN 0.125 MG TAB PO SCH (09:25)
[2022-01-31] MEDS: ASPirin 81 mg TAB PO SCH (09:25)
[2022-01-31] MEDS: CLOPIDOGREL BISULFATE 75 MG TAB PO SCH (09:25)
[2022-01-31] MEDS: IVABRADINE 5 MG TAB PO SCH ×2 (09:28→22:00)
[2022-01-31] MEDS: INSULIN LANTUS (GLARGINE) 1 /0.01ml (100units/ml) SC SCH (09:56)
[2022-01-31] MEDS ORDERED: FUROSEMIDE 20 MG/2 ML VIAL IV SCH (10:00)
[2022-01-31] MEDS ORDERED: AMIODARONE HCL 200 MG TAB PO SCH ×3 (10:00→14:45)
[2022-01-31] MEDS ORDERED: DIGOXIN 0.25 MG TAB PO ONE (10:00)
[2022-01-31] MEDS ORDERED: ATROPINE SULFATE 1 MG/1 ML VIAL ONE ×2 (12:21→20:23)
[2022-01-31 13:00] LABS: Basophils # (auto) 0 10 ^3/uL (0-0.2); Eosinophils # (auto) 0 10 ^3/uL (0-0.8); Hemoglobin 8.2 g/dL (12.2-16.2); Lymphocytes # (auto) 0.9 10 ^3/uL (0.4-5.4); Mean Corpuscular Hemoglobin 31.6 pg (28.0-32.0)
[2022-01-31 13:02] LABS: Basophils % (auto) 0.2 % (0.0-2.0); Eosinophils % (auto) 0.1 % (0.0-7.0); Hematocrit 25.2 % (36.0-46.0); Lymphocytes % (auto) 7.3 % (10.0-50.0); Mean Corpuscular Hgb Conc. 32.6 g/dL (32.0-36.0); Mean Corpuscular Volume 97.1 fL (80.0-100.0); Monocytes # (auto) 0.9 10 ^3/uL (0-1.3); Monocytes % (auto) 7.6 % (0.0-12.0); Neutrophils # (auto) 10.2 10 ^3/uL (1.6-8.6); Neutrophils % (auto) 84.8 % (37.0-80.0); Nucleated Red Blood Cells % 1.2 %; Red Blood Cells 2.59 10^6/uL (4.0-5.20); Red Cell Distribution Width 14.8 % (11.8-14.3)
[2022-01-31 13:11] LABS: Albumin 2.1 g/dL (3.4-5.0); Calcium 7.9 mg/dL (8.5-10.1); Magnesium 2.4 mg/dL (1.6-2.6); Potassium 5.1 mmol/L (3.5-5.1)
[2022-01-31 13:15] LABS: BUN/Creatinine Ratio 17.6; Bilirubin, Total 2.3 mg/dL (0.2-1.0); Total Protein 6.1 g/dL (6.4-8.2)
[2022-01-31] MEDS ORDERED: SODIUM BICARBONATE 8.4 % INJ 50ML VIAL IV ONE ×3 (14:45→22:30)
[2022-01-31] MEDS: HEPARIN SODIUM XX SCH (14:45)
[2022-01-31] MEDS: D5W 5% XX SCH (14:45)
[2022-01-31] MEDS ORDERED: DIGOXIN IMMUNEFAB PER PHARMACY 0 ML IV ONE (17:00)
[2022-01-31] MEDS ORDERED: ETOMIDATE (2MG/ML) 20ML VIAL IV ONE (17:04)
[2022-01-31] MEDS ORDERED: SUCCINYLCHOLINE CHLORIDE 20 MG/ML 10ML VIAL IV ONE (17:05)
[2022-01-31] MEDS ORDERED: ROCURONIUM 10MG/ML 10ML VIAL IV ONE (17:08)
[2022-01-31] MEDS ORDERED: MIDAZOLAM DRIP 50 mg/50mL 50 ML IV ONE (17:14)
[2022-01-31] MEDS ORDERED: MIDAZOLAM DRIP 50 mg/50mL 50 ML IV SCH (17:30)
[2022-01-31] MEDS ORDERED: fentaNYL Drip 2500mCg/250mlNS 250 ML IV SCH (17:30)
[2022-01-31] MEDS: MEROPENEM 500MG IVPB 50 ML IV SCH (18:30)
[2022-01-31] MEDS ORDERED: DIGOXIN IMMUNE FAB (OVINE) 80 MG in SODIUM CHL 0.9% 50 ML IV ONE (20:00)
[2022-01-31] MEDS ORDERED: SODIUM BICARBONATE 8.4% INJ 50ML SYRINGE ONE ×2 (22:27→22:34)
[2022-01-31] MEDS ORDERED: SODIUM BICARBONATE 50ML VIAL 150 ML in D5W 5% 1,000 ML IV SCH (22:30)
[2022-01-31 23:59] LABS: Potassium 5.5 mmol/L (3.5-5.1)
[2022-02-01] VITALS (35 sets, daily range): BP systolic 43–127; BP diastolic 16–57
[2022-02-01 00:18] LABS: BUN/Creatinine Ratio 16.7; Calcium 7.3 mg/dL (8.5-10.1); Magnesium 2.3 mg/dL (1.6-2.6)
[2022-02-01] MEDS ORDERED: SODIUM ZIRCONIUM CYCL 10 GM PAK PO ONE (01:00)
[2022-02-01] MEDS: MEROPENEM 500MG IVPB 50 ML IV SCH (05:00)
[2022-02-01] MEDS: ACCU-CHEK COMFORT CURVE STRIP VI SCH ×2 (06:30)
[2022-02-01] MEDS: InsuLIN REG 1unit/0.01ml Soln (100units/ml) SC SCH ×2 (06:40)
[2022-02-01] MEDS: LEVOTHYROXINE SODIUM 100 MCG TAB PO SCH (06:50)
[2022-02-01 07:05] LABS: Calcium 7.4 mg/dL (8.5-10.1); Potassium 5.3 mmol/L (3.5-5.1)
[2022-02-01 07:21] LABS: BUN/Creatinine Ratio 16.5; Bilirubin, Total 3.6 mg/dL (0.2-1.0); Total Protein 5.4 g/dL (6.4-8.2)
[2022-02-01 07:22] LABS: Basophils # (auto) 0 10 ^3/uL (0-0.2); Basophils % (auto) 0.2 % (0.0-2.0); Hemoglobin 7.7 g/dL (12.2-16.2); Monocytes # (auto) 0.8 10 ^3/uL (0-1.3)
[2022-02-01 07:25] LABS: Eosinophils # (auto) 0 10 ^3/uL (0-0.8); Eosinophils % (auto) 0.1 % (0.0-7.0); Hematocrit 23.8 % (36.0-46.0); Lymphocytes # (auto) 0.7 10 ^3/uL (0.4-5.4); Lymphocytes % (auto) 5.8 % (10.0-50.0); Mean Corpuscular Hemoglobin 32.1 pg (28.0-32.0); Mean Corpuscular Hgb Conc. 32.3 g/dL (32.0-36.0); Mean Corpuscular Volume 99.2 fL (80.0-100.0); Monocytes % (auto) 6.9 % (0.0-12.0); Neutrophils # (auto) 10.7 10 ^3/uL (1.6-8.6); Nucleated Red Blood Cells % 7.3 %; Red Cell Distribution Width 14.9 % (11.8-14.3); White Blood Cell 12.3 10^3/uL (4.4-10.8)
[2022-02-01] MEDS ORDERED: EPINEPHrine HCL 250 ML IV ONE (07:39)
[2022-02-01] MEDS ORDERED: PHENYLEPHRINE IV 250 ML IV ONE (07:53)
[2022-02-01] MEDS ORDERED: DEXTROSE (50%) 50ML SYRG IV ONE (12:29)
[2022-02-01] MEDS ORDERED: SODIUM BICARBONATE 8.4% INJ 50ML SYRINGE IV ONE (12:29)
[2022-02-01] MEDS ORDERED: ATROPINE SULF 1 MG/10ml SYR IV ONE (12:29)
[2022-02-01] MEDS ORDERED: EPINEPHrine HCL 1 MG/10 ML SYRG IV ONE (12:29)
[2022-02-01] MEDS ORDERED: CALCIUM CHLOR(10%) 100MG/ML 10ML SYRINGE IV ONE (12:29)
== END 2022-02-01 12:30 | DRG 215 ==
LOC: EDBD 07:13 → ER 07:13 → OVERFLOW 10:04 → ICU WEST 15:41
PROVIDERS: ADMIT Hospitalist; ATTEND Internal Medicine
PROC: 02HA3RZ Insertion of Short-term External Heart Assist System into Heart, Percutaneous Approach (ICD-10-PCS; principal; 2022-01-27)
PROC: 5A0221D Assistance with Cardiac Output using Impeller Pump, Continuous (ICD-10-PCS; 2022-01-27)
PROC: 027035Z Dilation of Coronary Artery, One Artery with Two Drug-eluting Intraluminal Devices, Percutaneous Approach (ICD-10-PCS; 2022-01-27)
PROC: B211YZZ Fluoroscopy of Multiple Coronary Arteries using Other Contrast (ICD-10-PCS; 2022-01-27)
PROC: 4A023N6 Measurement of Cardiac Sampling and Pressure, Right Heart, Percutaneous Approach (ICD-10-PCS; 2022-01-27)
PROC: 3E073PZ Introduction of Platelet Inhibitor into Coronary Artery, Percutaneous Approach (ICD-10-PCS; 2022-01-27)
PROC: 04HY32Z Insertion of Monitoring Device into Lower Artery, Percutaneous Approach (ICD-10-PCS; 2022-01-27)
PROC: 4A133B1 Monitoring of Arterial Pressure, Peripheral, Percutaneous Approach (ICD-10-PCS; 2022-01-27)
PROC: 4A133J1 Monitoring of Arterial Pulse, Peripheral, Percutaneous Approach (ICD-10-PCS; 2022-01-27)
PROC: 06HM33Z Insertion of Infusion Device into Right Femoral Vein, Percutaneous Approach (ICD-10-PCS; 2022-01-31)
PROC: 5A1945Z Respiratory Ventilation, 24-96 Consecutive Hours (ICD-10-PCS; 2022-01-31)
PROC: 0BH17EZ Insertion of Endotracheal Airway into Trachea, Via Natural or Artificial Opening (ICD-10-PCS; 2022-01-31)
PROC: 5A12012 Performance of Cardiac Output, Single, Manual (ICD-10-PCS; 2022-02-01)
DX: I21.19 ST elevation (STEMI) myocardial infarction involving other coronary artery of inferior wall (principal); A41.9 Sepsis, unspecified organism; E11.11 Type 2 diabetes mellitus with ketoacidosis with coma; E43 Unspecified severe protein-calorie malnutrition; R65.21 Severe sepsis with septic shock; J18.0 Bronchopneumonia, unspecified organism; K72.00 Acute and subacute hepatic failure without coma; K76.7 Hepatorenal syndrome; N17.0 Acute kidney failure with tubular necrosis; I50.43 Acute on chronic combined systolic (congestive) and diastolic (congestive) heart failure; J96.01 Acute respiratory failure with hypoxia; I44.2 Atrioventricular block, complete; I13.0 Hypertensive heart and chronic kidney disease with heart failure and stage 1 through stage 4 chronic kidney disease, or unspecified chronic kidney disease; N18.4 Chronic kidney disease, stage 4 (severe); D69.6 Thrombocytopenia, unspecified; E87.5 Hyperkalemia; I25.5 Ischemic cardiomyopathy; I46.9 Cardiac arrest, cause unspecified; R57.0 Cardiogenic shock; R57.1 Hypovolemic shock; D53.9 Nutritional anemia, unspecified; E03.9 Hypothyroidism, unspecified; E11.22 Type 2 diabetes mellitus with diabetic chronic kidney disease; F17.200 Nicotine dependence, unspecified, uncomplicated; I25.10 Atherosclerotic heart disease of native coronary artery without angina pectoris; Z20.822 Contact with and (suspected) exposure to COVID-19; R00.1 Bradycardia, unspecified; E78.5 Hyperlipidemia, unspecified; E11.40 Type 2 diabetes mellitus with diabetic neuropathy, unspecified; E11.21 Type 2 diabetes mellitus with diabetic nephropathy; D63.1 Anemia in chronic kidney disease; Z68.27 Body mass index [BMI] 27.0-27.9, adult; Z88.5 Allergy status to narcotic agent; I48.91 Unspecified atrial fibrillation; Z82.5 Family history of asthma and other chronic lower respiratory diseases; Z91.19 Patient's noncompliance with other medical treatment and regimen; Z79.899 Other long term (current) drug therapy; Z82.49 Family history of ischemic heart disease and other diseases of the circulatory system; Z83.3 Family history of diabetes mellitus; Z90.710 Acquired absence of both cervix and uterus; Z98.84 Bariatric surgery status; Z90.49 Acquired absence of other specified parts of digestive tract; Z79.84 Long term (current) use of oral hypoglycemic drugs
CPT/HCPCS: 36415; 36600; 71045; 76705; 80048; 80053; 80061; 80074; 80162; 80307; 81001; 82010; 82040; 82550; 82728; 82805; 82962; 83010; 83036; 83605; 83615; 83690; 83735; 83880; 83930; 84100; 84156; 84443; 84484; 84550; 85025; 85379; 85610; 85652; 85730; 86141; 87040; 87070; 87077; 87081; 87086; 87205; 92928; 92929; 92950; 93005; 93306; 93456; 94003; 96360; 96361; 99152; 99153; 99291; A4565; C1751; C1874; C1887; C9113; G0378; J0171; J0330; J0461; J1815; J2001; J2185; J2250; J2405; Q9967